=== PATIENT | male | born 1945 | race Caucasian/White ===

== ENCOUNTER 2018-07-20 11:55 | Observation (INO) ==
--- NOTE | 2018-07-20 12:16 | ED ---
HPI General Chief Complaint: Recheck/Abnormal Lab/Rx Stated Complaint: Ab labs Time Seen by Provider: 07/20/18 12:04 Source: patient Mode of arrival: EMS Limitations: no limitations History of Present Illness HPI narrative: 73-year-old male with PMH of HTN, PTSD, rheumatoid arthritis presents the ED via EMS for evaluation after abnormal lab results on yearly outpatient labs. Patient's followed by the PA. He states that he was told that he had a elevated potassium of 6.2 on lab work. On presentation the patient has no complaints. He denies headache, dizziness, fever, chills chest pain, palpitations, shortness of breath, abdominal pain, nausea, vomiting, weakness of the extremities. He endorses compliance with his daily medications. He takes lisinopril, metoprolol and amlodipine. He currently lives alone but states that his daughter is moving in with him in about a month. In the meantime he has neighbors that help him with his ADLs. Related Data Home Medications Medication Instructions Recorded Confirmed Lactobacillus acidophilus 1 tab PO QID 07/20/18 07/20/18 amlodipine 10 mg PO DAILY 07/20/18 07/20/18 atorvastatin 40 mg PO DAILY 07/20/18 07/20/18 febuxostat 40 mg PO DAILY 07/20/18 07/20/18 levothyroxine 175 mcg PO DAILY 07/20/18 07/20/18 lisinopril 40 mg PO DAILY 07/20/18 07/20/18 metoprolol tartrate 25 mg PO BID 07/20/18 07/20/18 mirtazapine 15 mg PO DAILY 07/20/18 07/20/18 sertraline 100 mg PO DAILY 07/20/18 07/20/18 sulfamethoxazole-trimethoprim 1 tab PO BID 07/20/18 07/20/18 thiamine HCl (vitamin B1) 100 mg PO DAILY 07/20/18 07/20/18 tramadol 100 mg PO QID 07/20/18 07/20/18 Allergies Allergy/AdvReac Type Severity Reaction Status Date / Time No Known Allergies Allergy Uncoded 06/19/14 09:50 Review of Systems ROS: all other systems reviewed are negative [facility] Medical History Medical History Blind (Acute) HTN (hypertension) (Acute) Hiatal hernia (Acute) Hypothyroid (Acute) PTSD (post-traumatic stress disorder) (Acute) Rheumatoid arthritis (Acute) Social History Social History Substance History: No History of Abuse Smoking Status: Former smoker How Often Do You Have a Drink Containing Alcohol: Never Recent Travel in [facility] within the Last 8 Weeks: No Recent Out of Country Travel within the Last 8 Weeks: No Immunization History Tetanus Immunization: <5 Years Exam Narrative Exam Narrative: GENERAL: Well-nourished, well-developed, pleasant white male in no acute distress. SKIN: Focused skin assessment warm/dry. HEAD: Atraumatic. Normocephalic. EYES: Pupils equal and round. No scleral icterus. No injection or drainage. ENT: No nasal bleeding or discharge. Mucous membranes pink and moist. NECK: Trachea midline. No JVD. CARDIOVASCULAR: Regular rate and rhythm. No murmur appreciated. RESPIRATORY: No accessory muscle use. Clear to auscultation. Breath sounds equal bilaterally. GASTROINTESTINAL: Abdomen soft, non-tender, nondistended. Hepatic and splenic margins not palpable. MUSCULOSKELETAL: No obvious deformities. No clubbing. No cyanosis. No edema. Wears a brace on the right knee, chronic. NEUROLOGICAL: Awake and alert. No obvious cranial nerve deficits. Motor grossly within normal limits. Normal speech. PSYCHIATRIC: Appropriate mood and affect; insight and judgment normal. Course Initial Documented Vital Signs Temperature 98.5 F 07/20/18 12:05 Pulse Rate 57 L 07/20/18 12:05 Respiratory Rate 23 07/20/18 12:05 Blood Pressure 110/68 07/20/18 12:05 Pulse Oximetry 99 07/20/18 12:05 Last Documented Vital Signs Temperature 98.5 F 07/20/18 12:05 Pulse Rate 63 07/20/18 14:19 Respiratory Rate 21 07/20/18 14:19 Blood Pressure 102/70 07/20/18 14:19 Pulse Oximetry 94 L 07/20/18 14:19 Medical Decision Making MDM Narrative Medical decision making narrative: 73-year-old male with PMH of HTN, PTSD presents to the ED for evaluation after outpatient lab work revealed potassium 6.1. Patient has no complaints on arrival. Physical exam reveals no appreciable M/R/G. EKG without acute findings. Repeat lab work reveals potassium of 6.2, BUN 27, creatinine 1.75. Patient was administered 1/2 L of normal saline and 30 mg Kayexalate. I spoke with Dr. Wiggins who agrees to accept the patient to the medicine service for observation. Please see medicine notes for disposition. Medical Screen Exam Complete: Yes Emergency Medical Condition: Yes Differential Diagnosis Differential Diagnosis: Abnormal labs versus hyperkalemia versus arrhythmia versus JR versus other Lab Data Result diagrams: 07/20/18 12:12 07/20/18 12:12 Lab Results 07/20/18 07/20/18 Range/Units 12:12 12:12 WBC 4.9 (4.0-11.0) th/mm3 RBC 2.81 L (4.50-5.90) mil/mm3 Hgb 9.9 L (13.0-17.0) gm/dL Hct 28.9 L (39.0-51.0) % MCV 102.8 H (80.0-100.0) fL MCH 35.2 H (27.0-34.0) pg MCHC 34.3 (32.0-36.0) % RDW 14.2 (11.6-17.2) % Plt Count 135 L (150-450) th/mm3 MPV 7.8 (7.0-11.0) fL Neut % (Auto) 60.4 (16.0-70.0) % Lymph % (Auto) 29.3 (9.0-44.0) % Nobles % (Auto) 5.0 (0.0-8.0) % Eos % (Auto) 4.8 H (0.0-4.0) % Baso % (Auto) 0.5 (0.0-2.0) % Neut # (Auto) 2.9 (1.8-7.7) th/mm3 Lymph # (Auto) 1.4 (1.0-4.8) th/mm3 Nobles # (Auto) 0.2 (0.0-0.9) th/mm3 Eos # (Auto) 0.2 (0.0-0.4) th/mm3 Baso # (Auto) 0.0 (0.0-0.2) th/mm3 WBC Differential . Differential Comment Auto diff final Sodium 135 L (136-145) meq/L Potassium 6.2 H (3.5-5.1) meq/L Chloride 107 (98-107) meq/L Carbon Dioxide 19.7 L (21.0-32.0) meq/L Anion Gap 8 (5-15) meq/L BUN 27 H (7-18) mg/dL Creatinine 1.75 H (0.60-1.30) mg/dL Estimated GFR 39 L (>89) mL/min Random Glucose 81 (74-106) mg/dL Calcium 8.1 L (8.5-10.1) mg/dL Total Bilirubin 0.4 (0.2-1.0) mg/dL AST 46 H (15-37) U/L ALT 50 (12-78) U/L Alkaline Phosphatase 110 (45-117) U/L Total Protein 6.4 (6.4-8.2) g/dL Albumin 3.3 L (3.4-5.0) g/dL ECG Data EKG Prior to Arrival: Yes Attestation: I personally reviewed and interpreted this ECG as follows: Interpretation: EKG rate 55, sinus rhythm. NJ interval 162, QRS 83, QTC 373 ms. Normal axis. No acute ST abnormalities. Reviewed by Dr. Keller. Discharge Plan Discharge Disposition Patient Disposition: 30 Still Patient Physicians Team ED Provider: John Keller ED Midlevel Provider: Anjelica Williamson Primary Care Provider: UNKNOWN, Attending Provider: Lucas Wiggins Discharge Interventions Interventions: Vital Signs Last Done: 07/20/18 14:19 Status ED Status: Admitted Observation Patient
[2018-07-20 12:41] LABS: Baso % (Auto) 0.5 % (0.0-2.0); Eos # (Auto) 0.2 th/mm3 (0.0-0.4); Eos % (Auto) 4.8 % (0.0-4.0); Hematocrit 28.9 % (39.0-51.0); Hemoglobin 9.9 gm/dL (13.0-17.0); Lymph # (Auto) 1.4 th/mm3 (1.0-4.8); Lymph % (Auto) 29.3 % (9.0-44.0); Mean Corpuscular HGB Conc 34.3 % (32.0-36.0); Mean Corpuscular Hemoglobin 35.2 pg (27.0-34.0); Mean Corpuscular Volume 102.8 fL (80.0-100.0); Mean Platelet Volume 7.8 fL (7.0-11.0); Mono # (Auto) 0.2 th/mm3 (0.0-0.9); Neut # (Auto) 2.9 th/mm3 (1.8-7.7); Neut % (Auto) 60.4 % (16.0-70.0); Platelet Count 135 th/mm3 (150-450); Red Blood Count 2.81 mil/mm3 (4.50-5.90); Red Cell Distribution Width 14.2 % (11.6-17.2); White Blood Count 4.9 th/mm3 (4.0-11.0)
[2018-07-20 13:07] LABS: Alkaline Phosphatase 110 U/L (45-117); Total Protein 6.4 g/dL (6.4-8.2)
[2018-07-20 13:14] LABS: Alanine Aminotransferase 50 U/L (12-78); Albumin 3.3 g/dL (3.4-5.0); Anion Gap 8 meq/L (5-15); Aspartate Aminotransferase 46 U/L (15-37); Blood Urea Nitrogen 27 mg/dL (7-18); Calcium 8.1 mg/dL (8.5-10.1); Carbon Dioxide 19.7 meq/L (21.0-32.0); Chloride 107 meq/L (98-107); Glomerular Filtration Rate 39 mL/min (>89); Glucose,Random 81 mg/dL (74-106); Potassium 6.2 meq/L (3.5-5.1); Sodium 135 meq/L (136-145)
[2018-07-20] MEDS ORDERED: Sodium Polystyrene Sulfonate/Sorbitol Liq 15 GM/60 ML UDC PO ONE (13:43)
[2018-07-20] MEDS ORDERED: Sodium Chlor 0.9% Inj 500 ML IV.SIG ONE (13:44)
[2018-07-20] MEDS ORDERED: Acetaminophen 325 MG Tablet PO PRN (14:23)
--- NOTE | 2018-07-20 15:29 | P.HP ---
History of Present Illness Primary Care Physician: UNKNOWN Chief Complaint: Abnormal lab including potassium of 6.1 History of Present Illness: 73-year-old male with a past medical history of hypertension, hyperlipidemia, hypothyroidism who was brought to the ED from the [place] for evaluation of abnormal lab including potassium of 6.1. Apparently, patient has gone for his annual medical check out when he was found to have abnormal lab results on his ER he outpatient labs including potassium was 6.1. Patient had no complaint of heart palpitation, chest pain or shortness of breath. A repeat lab in the ED revealed potassium was 6.2. Patient reports being on Bactrim DS over 1 month and also endorses eating a banana every day. Review of Systems All other systems reviewed negative except as stated in HPI PMFSH - History History Provided By: Patient - Medical History Medical History: Medical History (Last Reviewed 07/20/18 @ 12:13 by QUE López) Blind HTN (hypertension) Hiatal hernia Hypothyroid PTSD (post-traumatic stress disorder) Rheumatoid arthritis - Family History Family History: Family History (Last Updated 07/20/18 @ 15:28 by Lucas Wiggins MD) Other Colon cancer - Tobacco History Smoking Status: Former smoker - Alcohol History How Often Do You Have a Drink Containing Alcohol: Never - Substance Use History Substance History: No History of Abuse - Travel History Recent Travel in the [place] Within the Last 8 Weeks: No Recent Travel Out of the Country Within the Last 8 Weeks: No - Immunization History Tetanus Immunization: <5 Years Medications and Allergies Active Medications: Active Medications Acetaminophen (Tylenol) 650 mg PO Q4H PRN PRN Reason: Temp > 100.4 Al Hydroxide/Mg Hydroxide (Milk Of Naren Raphael) 30 ml PO Q12H PRN PRN Reason: Mild Constipation Amlodipine Besylate (Norvasc) 10 mg PO DAILY [facility] Atorvastatin Calcium (Lipitor) 40 mg PO DAILY [facility] Levothyroxine Sodium (Synthroid) 150 mcg PO DAILY@0600 [facility] Levothyroxine Sodium (Synthroid) 25 mcg PO DAILY@0600 [facility] Metoprolol Tartrate (Lopressor) 25 mg PO BID [facility]ADIS Ondansetron HCl (Zofran Inj) 4 mg IV.PUSH Q6H PRN PRN Reason: NAUSEA OR VOMITING Pt Own Med : ( Febuxostat [Uloric] 40 Mg) 0 each PO DAILY GLADIS Allergies Allergy/AdvReac Type Severity Reaction Status Date / Time No Known Allergies Allergy Uncoded 06/19/14 09:50 Home Medications Medication Instructions Recorded Confirmed Type Lactobacillus acidophilus 1 tab PO QID 07/20/18 07/20/18 History amlodipine 10 mg PO DAILY 07/20/18 07/20/18 History atorvastatin 40 mg PO DAILY 07/20/18 07/20/18 History febuxostat 40 mg PO DAILY 07/20/18 07/20/18 History levothyroxine 175 mcg PO DAILY 07/20/18 07/20/18 History lisinopril 40 mg PO DAILY 07/20/18 07/20/18 History metoprolol tartrate 25 mg PO BID 07/20/18 07/20/18 History mirtazapine 15 mg PO DAILY 07/20/18 07/20/18 History sertraline 100 mg PO DAILY 07/20/18 07/20/18 History sulfamethoxazole-trimethoprim 1 tab PO BID 07/20/18 07/20/18 History thiamine HCl (vitamin B1) 100 mg PO DAILY 07/20/18 07/20/18 History tramadol 100 mg PO QID 07/20/18 07/20/18 History Exam Vital signs: Vital Signs 07/20/18 12:05 07/20/18 14:19 Temperature 98.5 F Pulse Rate 57 L 63 Respiratory Rate 23 21 Blood Pressure 110/68 102/70 Pulse Oximetry 99 94 L Intake & Output 07/19/18 07/20/18 07/20/18 18:59 06:59 18:59 Intake Total 500 / 500 Balance 500 / 500 Weight 79.832 kg Intake: IV 500 / 500 NS Inj 500 ML @ Wide Open IV. 500 / 500 SIG BOLUS ONE Rx#:[id number] Narrative: GENERAL: NAD SKIN: Warm and dry. HEAD: Atraumatic. Normocephalic. EYES: Pupils equal and round. No scleral icterus. No injection or drainage. ENT: No nasal bleeding or discharge. Mucous membranes pink and moist. NECK: Trachea midline. No JVD. CARDIOVASCULAR: Regular rate and rhythm. RESPIRATORY: No accessory muscle use. Clear to auscultation. Breath sounds equal bilaterally. GASTROINTESTINAL: Abdomen soft, non-tender, nondistended. Hepatic and splenic margins not palpable. MUSCULOSKELETAL: Extremities without clubbing, cyanosis, or edema. No obvious deformities. Right knee brace NEUROLOGICAL: Awake and alert. No obvious cranial nerve deficits. Motor grossly within normal limits. Five out of 5 muscle strength in the arms and legs. Normal speech. PSYCHIATRIC: Appropriate mood and affect; insight and judgment normal. Results - Labs CBC & Chem 7: 07/20/18 12:12 07/20/18 12:12 Labs: Laboratory Results - last 24 hr 07/20/18 07/20/18 12:12 12:12 WBC 4.9 RBC 2.81 L Hgb 9.9 L Hct 28.9 L MCV 102.8 H MCH 35.2 H MCHC 34.3 RDW 14.2 Plt Count 135 L MPV 7.8 Neut % (Auto) 60.4 Lymph % (Auto) 29.3 [place] % (Auto) 5.0 Eos % (Auto) 4.8 H Baso % (Auto) 0.5 Neut # (Auto) 2.9 Lymph # (Auto) 1.4 [place] # (Auto) 0.2 Eos # (Auto) 0.2 Baso # (Auto) 0.0 WBC Differential . Differential Comment Auto diff final Sodium 135 L Potassium 6.2 H Chloride 107 Carbon Dioxide 19.7 L Anion Gap 8 BUN 27 H Creatinine 1.75 H Estimated GFR 39 L Random Glucose 81 Calcium 8.1 L Total Bilirubin 0.4 AST 46 H ALT 50 Alkaline Phosphatase 110 Total Protein 6.4 Albumin 3.3 L Caprini VTE Risk Assessment Caprini VTE Risk Assessment: Moderate/High Risk (score >= 2) Caprini Risk Assessment Model: Point Value = 1 Point Value = 2 Point Value = 3 Point Value = 5 Age 41-60 Minor surgery BMI > 25 kg/m2 Swollen legs Varicose veins or History of unexplained or recurrent spontaneous Oral contraceptives or hormone replacement Sepsis (< 1 month) Serious lung disease, including pneumonia (< 1 month) Abnormal pulmonary function Acute myocardial infarction Congestive heart failure (< 1 month) History of inflammatory bowel disease Medical patient at bed rest Age 61-74 Arthroscopic surgery Major open surgery (> 45 min) Laparoscopic surgery (> 45 min) Malignancy Confined to bed (> 72 hours) Immobilizing plaster cast Central venous access Age >= 75 History of VTE Family history of VTE Factor V Leiden Prothrombin [id number] Lupus anticoagulant Anticardiolipin antibodies Elevated serum homocysteine Heparin-induced thrombocytopenia Other congenital or acquired thrombophilia Stroke (< 1 month) Elective arthroplasty Hip, pelvis, or leg fracture Acute spinal cord injury (< 1 month) Prophylaxis Regimen: Total Risk Factor Score Risk Level Prophylaxis Regimen 0-1 Low Early ambulation 2 Moderate Order ONE of the following: *Sequential Compression Device (SCD) *Heparin 5000 units SQ BID 3-4 Higher Order ONE of the following medications: *Heparin 5000 units SQ TID *Enoxaparin/Lovenox 40 mg SQ daily (WT < 150 kg, CrCl > 30 mL/min) *Enoxaparin/Lovenox 30 mg SQ daily (WT < 150 kg, CrCl > 10-29 mL/min) *Enoxaparin/Lovenox 30 mg SQ BID (WT < 150 kg, CrCl > 30 mL/min) AND/OR *Sequential Compression Device (SCD) 5 or more Highest Order ONE of the following medications: *Heparin 5000 units SQ TID (Preferred with Epidurals) *Enoxaparin/Lovenox 40 mg SQ daily (WT < 150 kg, CrCl > 30 mL/min) *Enoxaparin/Lovenox 30 mg SQ daily (WT < 150 kg, CrCl > 10-29 mL/min) *Enoxaparin/Lovenox 30 mg SQ BID (WT < 150 kg, CrCl > 30 mL/min) AND *Sequential Compression Device (SCD) Assessment and Plan - Plan 73-year-old man with Hyperkalemia Iatrogenic, likely secondary to medication side effect including Bactrim DS EKG reviewed with rate 55, sinus rhythm. KS interval 162, QRS 83, QTC 373 ms. Normal axis. No acute ST abnormalities Will give Kayexalate x1 now and repeat K Telemetry monitoring Acute kidney injury Continue with gentle IV fluid hydration Avoid all nephrotoxic drug, and monitor BUN and creatinine Macrocytic anemia No evidence of GI bleed Continue to monitor H&H Outpatient management per PCP History of hypertension Hold lisinopril, resume other oral antihypertensive medications Other chronic medical conditions Resume outpatient medications
[2018-07-20] MEDS: Metoprolol Tartrate 25 MG Tablet PO SCH ×2 (21:08→21:10)
[2018-07-21] MEDS: Levothyroxine 150 MCG Tablet PO SCH (05:52)
[2018-07-21] MEDS: Metoprolol Tartrate 25 MG Tablet PO SCH ×2 (08:11→22:11)
[2018-07-21 08:43] LABS: Baso % (Auto) 0.8 % (0.0-2.0); Eos # (Auto) 0.2 th/mm3 (0.0-0.4); Eos % (Auto) 6.3 % (0.0-4.0); Hematocrit 29.3 % (39.0-51.0); Hemoglobin 10.1 gm/dL (13.0-17.0); Lymph % (Auto) 37.1 % (9.0-44.0); Mean Corpuscular HGB Conc 34.3 % (32.0-36.0); Mean Corpuscular Hemoglobin 35.1 pg (27.0-34.0); Mean Corpuscular Volume 102.4 fL (80.0-100.0); Mean Platelet Volume 7.4 fL (7.0-11.0); Mono # (Auto) 0.1 th/mm3 (0.0-0.9); Mono % (Auto) 5.6 % (0.0-8.0); Neut # (Auto) 1.3 th/mm3 (1.8-7.7); Neut % (Auto) 50.2 % (16.0-70.0); Platelet Count 117 th/mm3 (150-450); Red Blood Count 2.86 mil/mm3 (4.50-5.90); Red Cell Distribution Width 14.2 % (11.6-17.2); White Blood Count 2.6 th/mm3 (4.0-11.0)
[2018-07-21] MEDS ORDERED: amLODIPine 10 MG Tablet PO SCH (09:00)
[2018-07-21] MEDS ORDERED: FEBUXOSTAT 40 MG PO SCH (09:00)
[2018-07-21 09:04] LABS: Calcium 8.7 mg/dL (8.5-10.1); Carbon Dioxide 22.7 meq/L (21.0-32.0); Potassium 5.1 meq/L (3.5-5.1)
[2018-07-21] MEDS ORDERED: Sod Chloride 0.9% Inj 1,000 ML IV.SIG SCH (09:20)
--- NOTE | 2018-07-21 09:53 | P.PNIM ---
Subjective Interval history: No complaints this morning, no dizziness/lightheadedness. Physical Exam Vital signs: Last Vital Signs Temp 98.7 F 07/21/18 08:00 Pulse 77 07/21/18 08:00 Resp 16 07/21/18 08:00 BP 86/62 L 07/21/18 08:00 Pulse Ox 99 07/21/18 08:00 Intake & Output 07/19/18 07/20/18 07/21/18 07/22/18 06:59 06:59 06:59 06:59 Intake Total 500 / 500 Balance 500 / 500 Weight 87.8 kg Narrative: GENERAL: NAD SKIN: Warm and dry. HEAD: Atraumatic. Normocephalic. EYES: Pupils equal and round. No scleral icterus. No injection or drainage. ENT: No nasal bleeding or discharge. Mucous membranes pink and moist. NECK: Trachea midline. No JVD. CARDIOVASCULAR: Regular rate and rhythm. RESPIRATORY: No accessory muscle use. Clear to auscultation. Breath sounds equal bilaterally. GASTROINTESTINAL: Abdomen soft, non-tender, nondistended. Hepatic and splenic margins not palpable. MUSCULOSKELETAL: Extremities without clubbing, cyanosis, or edema. No obvious deformities. Right knee brace NEUROLOGICAL: Awake and alert. No obvious cranial nerve deficits. Motor grossly within normal limits. Five out of 5 muscle strength in the arms and legs. Normal speech. PSYCHIATRIC: Appropriate mood and affect; insight and judgment normal. Results Labs CBC & Chem 7: 07/21/18 08:00 07/21/18 08:00 Assessment and Plan (1) Acute kidney injury: Code(s): N17.9 - Acute kidney failure, unspecified Status: Acute (2) Hyperkalemia: Code(s): E87.5 - Hyperkalemia Status: Acute (3) Hypotension: Code(s): I95.9 - Hypotension, unspecified Status: Acute 73yo male with h/o of hypertension, hyperlipidemia, hypothyroidism who was referred due to abnormal labs--hyperkalemia and elevated Creatinine. 1. Hyperkalemia--likely in setting of JR which may have been due to Bactrim- discontinued on admission. Unclear why he was on it. Patient also was on Lisinopril which was held on admission. K is down 5.0mmol/l this morning. 2. Acute kidney injury--likely medication induced re: combination of Bactrim and lisinopril. Cr 1.75 on admission, slight downward trend this am to 1.61, noted hypotension this am, this may worsen JR. continue IV hydration for now. 3. Hypotension--hold of BP medication, give NS bolus. 4. Pancytopenia--with macrocytic anemia. etiology unclear. check B12/folate/tsh Progress Note: Quality VTE Deep Vein Thrombosis/Pulmonary Embolism Present on Admission: No
--- NOTE | 2018-07-21 16:46 | ECG ---
Date Performed: 07/20/2018 Time Performed: 12:01:36 PTAGE: 73 years EKG: SINUS BRADYCARDIA LOW QRS VOLTAGE IN EXTREMITY LEADS NONSPECIFIC T-WAVE ABNORMALITY Since t he previous tracing, no significant change noted BORDERLINE ECG PREVIOUS TRACING : 04/24/2015 03.46 DOCTOR: Eulalio Smiley Interpretating Date/Time 07/21/2018 16:41:53
[2018-07-22] MEDS: Levothyroxine 150 MCG Tablet PO SCH (05:20)
[2018-07-22 07:33] LABS: Calcium 8.7 mg/dL (8.5-10.1); Carbon Dioxide 23.2 meq/L (21.0-32.0); Potassium 4.9 meq/L (3.5-5.1)
[2018-07-22 07:59] LABS: Thyroid Stimulating Hormone 0.373 uIU/mL (0.358-3.740)
[2018-07-22 08:27] VITALS: RESP 12; O2SAT 99
[2018-07-22] MEDS: Metoprolol Tartrate 25 MG Tablet PO SCH (09:26)
--- NOTE | 2018-07-22 12:47 | P.DCO ---
Diagnosis (1) Acute kidney injury: Status: Acute (2) Hyperkalemia: Status: Acute (3) Hypotension: Status: Acute (4) Debility: Status: Acute I have seen patient Yannick Mock on 07/22/18. My clinical findings support the need for the requested home health care services because:physical deconditioning, home PT has been recommended. I certify that my clinical findings support that this patient is homebound because:
[2018-07-22 12:54] VITALS: BP 121/64; PULSE 73; TEMP 98.4
--- NOTE | 2018-07-22 13:19 | P.DS ---
DS: Providers Date of admission: 07/20/18 13:46 Primary care physician: UNKNOWN DS: Diagnosis Discharge Diagnosis (1) Acute kidney injury: Status: Acute (2) Hyperkalemia: Status: Acute (3) Hypotension: Status: Acute (4) Debility: Status: Acute DS: Summary 73-year-old male with a past medical history of hypertension, hyperlipidemia, hypothyroidism who was brought to the ED from the [place] for evaluation of abnormal lab including potassium of 6.1mmol/l. Apparently, patient had gone for his annual medical check out when he was found to have abnormal lab results. Patient did not have complaints, no palpitations,chest pain or shortness of breath.Patient reports being on Bactrim DS over 1 month and also endorses eating a banana every day. On presentation to ED patient had stable vitals, labs revealed K of 6.2 mmol/l, Cr 1.75mg/dl. ECG did not show any hyperacute findings. Patient was admitted to the medical floor. ISSUES ADDRESSED DURING THIS HOSPITALIZATION: 1. Hyperkalemia--likely in setting of JR which may have been due to Bactrim- discontinued on admission. Unclear why he was on it. Patient also was on Lisinopril which was held on admission. K is down 4.9mmol/l this morning. Patient has also been advised to avoid bananas for now. 2. Acute kidney injury--likely medication induced re: combination of Bactrim and lisinopril. He received gentle hydration. Cr 1.75 on admission, trended down to 1.41mg/dl,with a GFR of 50 on day of discharge. Patient has been advised to take adequate amounts of fluids. 3. Hypotension--patient had intermittent episodes of hypertension while hospitalized, all his BP meds were placed on hold. His BP remained in the lower normal range thereafter and patient was asymptomatic. BP meds can be gradually resumed as indicated after re-evaluation by his PCP. 4. Pancytopenia--with macrocytic anemia. etiology unclear. B12 and TSH were normal. Folate level was pending on discharge. patient can be referred to outpatient escrow closer by his PCP if need be. Patient was seen by the physical therapist while inpatient and home PT was recommended arrangements for which are being made. Time Spent with Patient Total time spent providing and/or coordinating discharge services: Quality: VTE Deep Vein Thrombosis/Pulmonary Embolism Present on Admission: No Exam Narrative Exam Narrative: GENERAL: NAD SKIN: Warm and dry. HEAD: Atraumatic. Normocephalic. EYES: Pupils equal and round. No scleral icterus. No injection or drainage. ENT: No nasal bleeding or discharge. Mucous membranes pink and moist. NECK: Trachea midline. No JVD. CARDIOVASCULAR: Regular rate and rhythm. RESPIRATORY: No accessory muscle use. Clear to auscultation. Breath sounds equal bilaterally. GASTROINTESTINAL: Abdomen soft, non-tender, nondistended. Hepatic and splenic margins not palpable. MUSCULOSKELETAL: Extremities without clubbing, cyanosis, or edema. No obvious deformities. Right knee brace NEUROLOGICAL: Awake and alert. No obvious cranial nerve deficits. Motor grossly within normal limits. Five out of 5 muscle strength in the arms and legs. Normal speech. PSYCHIATRIC: Appropriate mood and affect; insight and judgment normal. DS: Data Labs on day of discharge: Labs from last 24 hours 07/22/18 07/22/18 06:40 06:40 Sodium 142 Potassium 4.9 Chloride 109 H Carbon Dioxide 23.2 Anion Gap 10 BUN 17 Creatinine 1.41 H Estimated GFR 50 L Random Glucose 99 Calcium 8.7 Vitamin B12 1430 H RBC Folate Pending TSH 0.373 Discharge Plan Discharge Disposition Patient Disposition: Disch W/Home Health Service Discharge Condition Condition: Stable Discharge Order Discharge Orders: Discharge Order (Routine); Ordered 07/22/18 Ordered By: Aleta Noguera Discharge Details Anticipated Discharge Date: 07/22/18 Physicians Team Primary Care Provider: UNKNOWN, Attending Provider: Catherine Ibarra Rxs /Orders / Referrals /Forms Prescriptions: Continue atorvastatin 40 mg Tablet 40 mg PO DAILY RF: 0 levothyroxine 175 mcg Tablet 175 mcg PO DAILY RF: 0 sertraline 100 mg Tablet 100 mg PO DAILY RF: 0 thiamine HCl (vitamin B1) 100 mg Tablet 100 mg PO DAILY RF: 0 tramadol 50 mg Tablet 100 mg PO QID RF: 0 mirtazapine 15 mg Tablet 15 mg PO DAILY RF: 0 Lactobacillus acidophilus Tablet,Chewable 1 tab PO QID RF: 0 febuxostat 40 mg Tablet 40 mg PO DAILY RF: 0 Discontinued sulfamethoxazole-trimethoprim 800-160 mg Tablet 1 tab PO BID RF: 0 amlodipine 10 mg Tablet 10 mg PO DAILY RF: 0 lisinopril 40 mg Tablet 40 mg PO DAILY RF: 0 metoprolol tartrate 25 mg Tablet 25 mg PO BID RF: 0 Referrals: UNKNOWN, [Primary Care Provider] - See Instructions Discharge Instructions Patient Printed Instructions: Acute Kidney Injury (DC), Hyperkalemia (DC) Additional Instructions: You were referred to the hospital from your doctors clinic because of abnormal labs--high potassium and elevated Creatinine(kidney number). Your blood pressure was also found to be low. Your potassium has normalized and your creatinine has improved. You received intravenous hydration and are also being encouraged to take sufficient amounts of fluids, at least 8-10 glasses a day. Your blood pressure medication (Lisinopril,Amlodipine,and Metoprolol) have been stopped temporarily. Please do not take these medication until you are re- evaluated by your doctor who can gradually resume them as indicated. The physical therapist evaluated you are recommended home PT arrangements for which shall be made. Please follow up with your doctor within 2-3 days for re-evaluation. Status ED Status: Left Department
== END 2018-07-22 15:12 | disposition home health service (06) ==
LOC: NEPE 11:55 → NEDA 11:55 → NEPGCP 14:56
PROVIDERS: ADMIT Family Medicine; ATTEND Family Medicine